=== PATIENT | male | born 1985 | race Two or more races ===

== ENCOUNTER 2019-03-04 22:15 | Emergency (ER) | payer SELFPAY ==
[~2019-03-04] VITALS: Ht 185.4 cm; Wt 136.7 kg
[~2019-03-04 22:15] MED LIST: ALBU6.7H3 IH; ALBU8.5H8 IH; AZIT250T PO; METF500T PO; NO HOME MEDS; ONDA4TAB6 PO; PROC-8 PO
[2019-03-05 00:57] VITALS: BP 149/68
== END 2019-03-05 01:03 | disposition home or self-care (01) ==
LOC: ER 22:16
DX: I83.91 Asymptomatic varicose veins of right lower extremity (principal); G89.29 Other chronic pain; Z90.49 Acquired absence of other specified parts of digestive tract; Z79.899 Other long term (current) drug therapy
CPT/HCPCS: 93971; 99284

== ENCOUNTER 2019-05-12 19:12 | Emergency (ER) | payer OTHER ==
[~2019-05-12] VITALS: Ht 185.4 cm; Wt 145.4 kg
[2019-05-12] MEDS ORDERED: morphine 4 MG/ML inj SYRINge IV PRN (19:30)
[2019-05-12] MEDS ORDERED: normal saline 1000ML IV soln IVB ONE (19:30)
[2019-05-12] MEDS ORDERED: ondansetron/PF 4mg/2ml inj IV ONE (19:30)
[2019-05-12 20:03] LABS: CLARITY,URINE CLEAR (Clear); COLOR,URINE AMBER (Yellow); GLUCOSE, URINE >=1000 mg/dl (Neg); KETONES,URINE TRACE mg/dl (Neg); LEUKOCYTE ESTERASE ,URINE NEGATIVE (Neg); NITRITES, URINE NEGATIVE (Neg); OCCULT BLOOD,URINE NEGATIVE (Neg); PH,URINE 5.5 (4.8-8.0); PROTEIN,URINE TRACE mg/dl (Neg); UROBILINOGEN,URINE 0.2 E.U/dL (0.2-1.0)
[2019-05-12 20:04] LABS: UA COLLECTION TYPE CLN CATCH MIDSTREAM
--- NOTE | 2019-05-12 20:04 | NUR ---
Urine sample sent to lab for UA. Pt transported to CT via wheelchair.
[2019-05-12 20:05] LABS: BASOPHILS # (AUTO) 0.1 X10'3 (0-0.2); BASOPHILS % (AUTO) 0.7 % (0-1); EOSINOPHILS # (AUTO) 0.2 X10'3 (0-0.9); EOSINOPHILS % (AUTO) 1.9 % (0-6); HEMATOCRIT 46.6 % (42.0-52.0); HEMOGLOBIN 15.6 g/dl (14.0-17.9); LYMPHOCYTES % (AUTO) 21.2 % (21-51); MEAN CORPUSCULAR HEMOGLOBIN 27.3 PG (27.0-31.0); MEAN CORPUSCULAR HGB CONC 33.5 g/dL (33.0-36.5); MEAN CORPUSCULAR VOLUME 81.4 FL (78-98); MEAN PLATELET VOLUME 7.1 FL (7.4-10.4); MONOCYTES # (AUTO) 0.9 X10'3 (0-0.9); MONOCYTES % (AUTO) 9.9 % (2-12); NEUTROPHILS # (AUTO) 6.2 X10'3 (1.8-7.7); NEUTROPHILS % (AUTO) 66.3 % (42-75); PLATELET COUNT 330 X10'3 (140-440); RED BLOOD COUNT 5.73 X10'6 (4.70-6.10); RED CELL DISTRIBUTION WIDTH 14.2 % (11.5-14.5); WHITE BLOOD COUNT 9.4 X10'3 (4.5-11.0)
[2019-05-12 20:13] LABS: BACTERIA,URINE NONE SEEN /HPF (Neg); MUCUS STRANDS FEW /LPF (Neg); RBC,URINE 0-2 /HPF (0-2); SQUAMOUS EPITHELIAL CELL,UR NONE SEEN /LPF (FEW); WBC,URINE 0-4 /HPF (0-4)
[2019-05-12 20:18] LABS: ALANINE AMINOTRANSFERASE 85 U/L (12-78); ALBUMIN 3.5 G/DL (3.4-5.0); ALBUMIN/GLOBULIN RATIO 0.8 (1.1-1.5); ALKALINE PHOSPHATASE 87 IU/L (46-116); ANION GAP 7 (8-16); ASPARTATE AMINO TRANSFERASE 34 U/L (10-37); BILIRUBIN,TOTAL 0.3 MG/DL (0.1-1.0); BLOOD UREA NITROGEN 13 MG/DL (7-18); BUN/CREATININE RATIO 8.3 (5.4-32.0); CALCIUM 9.2 MG/DL (8.5-10.1); CHLORIDE 103 MMOL/L (99-107); CREATININE 1.56 MG/DL (0.60-1.10); GLUCOSE 231 MG/DL (70-104); LIPASE 96 U/L (73-393); POTASSIUM 3.8 MMOL/L (3.5-5.1); SODIUM 139 MMOL/L (135-145); TOTAL PROTEIN 7.9 G/DL (6.4-8.2); eGFR 52 ML/MIN
[2019-05-12 21:00] VITALS: BP 133/82
== END 2019-05-12 21:21 | disposition home or self-care (01) ==
LOC: ER 19:13
DX: R10.13 Epigastric pain (principal); R19.7 Diarrhea, unspecified; G89.29 Other chronic pain; Z90.49 Acquired absence of other specified parts of digestive tract; Z79.2 Long term (current) use of antibiotics; Z79.84 Long term (current) use of oral hypoglycemic drugs; Z79.899 Other long term (current) drug therapy
CPT/HCPCS: 36415; 74176; 80053; 81001; 83690; 85025; 99284

== ENCOUNTER 2019-06-21 10:07 | Emergency (ER) | payer OTHER ==
[~2019-06-21] VITALS: Ht 185.4 cm; Wt 147.7 kg
[2019-06-21 10:13] VITALS: BP 141/108
== END 2019-06-21 11:15 | disposition home or self-care (01) ==
LOC: ER 10:09
DX: G56.02 Carpal tunnel syndrome, left upper limb (principal); G89.29 Other chronic pain; Z90.49 Acquired absence of other specified parts of digestive tract; Z79.84 Long term (current) use of oral hypoglycemic drugs; Z79.899 Other long term (current) drug therapy
CPT/HCPCS: 29260; 99283

== ENCOUNTER 2020-06-01 17:28 | Emergency (ER) | payer OTHER ==
[~2020-06-01] VITALS: Ht 185.4 cm; Wt 145.4 kg
[2020-06-01 17:43] VITALS: BP 135/101
== END 2020-06-01 18:11 | disposition home or self-care (01) ==
LOC: ER 17:28
DX: J06.9 Acute upper respiratory infection, unspecified (principal); R05 Cough; Z20.828 Contact with and (suspected) exposure to other viral communicable diseases; G89.29 Other chronic pain; Z90.49 Acquired absence of other specified parts of digestive tract; Z87.01 Personal history of pneumonia (recurrent); Z79.2 Long term (current) use of antibiotics; Z79.899 Other long term (current) drug therapy
CPT/HCPCS: 36415; 87635; 99283

== ENCOUNTER 2020-06-07 11:30 | Emergency (ER) | payer OTHER ==
[~2020-06-07] VITALS: Ht 185.4 cm; Wt 145.4 kg
[2020-06-07] MEDS ORDERED: normal saline 1000ML IV soln IV ONE (12:00)
[2020-06-07] MEDS ORDERED: aspirin 81mg tab.chew PO ONE (12:00)
[2020-06-07] MEDS ORDERED: ALBUTEROL INHALER 1 PUFF/90 MCG INHALER IH PRN (12:15)
[2020-06-07 12:47] LABS: BASOPHILS % (AUTO) 0.8 % (0-1); EOSINOPHILS % (AUTO) 0.3 % (0-6); HEMATOCRIT 50.5 % (42.0-52.0); HEMOGLOBIN 16.9 g/dl (14.0-17.9); LYMPHOCYTES # (AUTO) 1.2 X10'3 (1.1-4.8); LYMPHOCYTES % (AUTO) 27.8 % (21-51); MEAN CORPUSCULAR HEMOGLOBIN 26.9 PG (27.0-31.0); MEAN CORPUSCULAR HGB CONC 33.5 g/dL (33.0-36.5); MEAN CORPUSCULAR VOLUME 80.3 FL (78-98); MEAN PLATELET VOLUME 7.6 FL (7.4-10.4); MONOCYTES # (AUTO) 0.4 X10'3 (0-0.9); MONOCYTES % (AUTO) 10.6 % (2-12); NEUTROPHILS # (AUTO) 2.5 X10'3 (1.8-7.7); NEUTROPHILS % (AUTO) 60.5 % (42-75); PLATELET COUNT 208 X10'3 (140-440); RED BLOOD COUNT 6.28 X10'6 (4.70-6.10); WHITE BLOOD COUNT 4.1 X10'3 (4.5-11.0)
[2020-06-07 12:52] LABS: D-DIMER 0.26 MG/L FEU (0-0.50)
[2020-06-07 12:55] LABS: ALANINE AMINOTRANSFERASE 131 U/L (12-78); ALBUMIN 3.7 G/DL (3.4-5.0); ALBUMIN/GLOBULIN RATIO 0.8 (1.1-1.5); ALKALINE PHOSPHATASE 88 IU/L (46-116); ANION GAP 9 (8-16); ASPARTATE AMINO TRANSFERASE 66 U/L (10-37); BILIRUBIN,TOTAL 0.5 MG/DL (0.1-1.0); BLOOD UREA NITROGEN 16 MG/DL (7-18); BUN/CREATININE RATIO 14.2 (5.4-32.0); CALCIUM 8.7 MG/DL (8.5-10.1); CHLORIDE 102 MMOL/L (99-107); CREATININE 1.13 MG/DL (0.60-1.10); GLUCOSE 211 MG/DL (70-104); SODIUM 137 MMOL/L (135-145); TOTAL CARBON DIOXIDE 25.6 MMOL/L (24-32); TOTAL PROTEIN 8.1 G/DL (6.4-8.2); eGFR 75 ML/MIN
[2020-06-07] MEDS ORDERED: dexamethasone sod phosphate 10mg/ml inj IV STA (13:02)
[2020-06-07] MEDS ORDERED: azithromycin/NS 500mg/250ml 250 ML IV ONE (13:05)
[2020-06-07] MEDS ORDERED: CefTRIAXone 2gm/D5W 50ml BAG 50 ML IV ONE (13:05)
[2020-06-07 13:08] LABS: C-REACTIVE PROTEIN 1.91 MG/DL (0.0-0.5); FERRITIN 655 NG/ML (26-388); LACTATE DEHYDROGENASE 201 U/L (85-227)
--- NOTE | 2020-06-07 13:34 | NUR ---
AMBULATED IN ROOM 02 96%, HR 136, RR 36 FEELS SOB
[2020-06-07 14:12] LABS: CLARITY,URINE CLEAR (Clear); COLOR,URINE YELLOW (Yellow); GLUCOSE, URINE >=1000 mg/dl (Neg); KETONES,URINE 40 mg/dl (Neg); LEUKOCYTE ESTERASE ,URINE NEGATIVE (Neg); NITRITES, URINE NEGATIVE (Neg); OCCULT BLOOD,URINE NEGATIVE (Neg); PH,URINE 5.5 (4.8-8.0); PROTEIN,URINE TRACE mg/dl (Neg); UROBILINOGEN,URINE 0.2 E.U/dL (0.2-1.0)
[2020-06-07 14:15] LABS: UA COLLECTION TYPE URINAL
[2020-06-07 14:21] LABS: BACTERIA,URINE FEW /HPF (Neg); HYALINE CASTS 0-3 /LPF (NEGATIVE); MUCUS STRANDS MODERATE /LPF (Neg); RBC,URINE 0-2 /HPF (0-2); SQUAMOUS EPITHELIAL CELL,UR FEW /LPF (FEW); WBC,URINE 0-4 /HPF (0-4)
[2020-06-07] MEDS ORDERED: AZIT500T PO (15:08)
[2020-06-07] MEDS ORDERED: ALBU6.7H9 INH (15:08)
[2020-06-07] MEDS ORDERED: DEXA6TAB PO (15:08)
[2020-06-07 16:10] VITALS: BP 120/82
== END 2020-06-07 16:00 | disposition home or self-care (01) ==
LOC: ER 11:30
DX: U07.1 COVID-19 (principal); R06.02 Shortness of breath; R05 Cough; R53.83 Other fatigue; R53.1 Weakness; R50.9 Fever, unspecified; G89.29 Other chronic pain; Z87.01 Personal history of pneumonia (recurrent); Z90.49 Acquired absence of other specified parts of digestive tract; Z79.2 Long term (current) use of antibiotics; Z79.899 Other long term (current) drug therapy
CPT/HCPCS: 36415; 71045; 80053; 81001; 82728; 83605; 83615; 83880; 84145; 84484; 85025; 85379; 86140; 87040; 96361; 96365; 96366; 96367; 96375; 99285; J0456; J0696; J1100; J7030

== ENCOUNTER 2020-06-09 11:29 | Inpatient (IN) | payer OTHER ==
[~2020-06-09] VITALS: Ht 185.4 cm; Wt 145.4 kg
[~2020-06-09 11:29] MED LIST changes: -ALBU6.7H3 IH; +ALBU6.7H9 INH; -ALBU8.5H8 IH; -AZIT250T PO; +AZIT500T PO; +DEXA6TAB PO; -METF500T PO; -ONDA4TAB6 PO; -PROC-8 PO
[2020-06-09] MEDS ORDERED: normal saline 1000ML IV soln IVB ONE (12:30)
[2020-06-09] MEDS ORDERED: ketorolac trometh. 30mg/ml inj. IM ONE (12:30)
[2020-06-09] MEDS ORDERED: ondansetron/PF 4mg/2ml inj IV ONE (12:30)
[2020-06-09] MEDS ORDERED: iohexol 350MG/ML 100ml bottle IV ONE (13:28)
[2020-06-09 13:34] LABS: BASOPHILS % (AUTO) 0.4 % (0-1); EOSINOPHILS % (AUTO) 0 % (0-6); HEMATOCRIT 47.3 % (42.0-52.0); HEMOGLOBIN 15.9 g/dl (14.0-17.9); LYMPHOCYTES # (AUTO) 0.8 X10'3 (1.1-4.8); LYMPHOCYTES % (AUTO) 8.8 % (21-51); MEAN CORPUSCULAR HEMOGLOBIN 26.9 PG (27.0-31.0); MEAN CORPUSCULAR HGB CONC 33.7 g/dL (33.0-36.5); MEAN CORPUSCULAR VOLUME 79.9 FL (78-98); MEAN PLATELET VOLUME 7.6 FL (7.4-10.4); MONOCYTES # (AUTO) 0.7 X10'3 (0-0.9); MONOCYTES % (AUTO) 7.4 % (2-12); NEUTROPHILS # (AUTO) 7.9 X10'3 (1.8-7.7); NEUTROPHILS % (AUTO) 83.4 % (42-75); PLATELET COUNT 241 X10'3 (140-440); RED BLOOD COUNT 5.92 X10'6 (4.70-6.10); WHITE BLOOD COUNT 9.4 X10'3 (4.5-11.0)
[2020-06-09 13:49] LABS: C-REACTIVE PROTEIN 3.46 MG/DL (0.0-0.5)
--- NOTE | 2020-06-09 15:23 | NUR ---
gait tested patient inside the room,reports sob,sating 87% without oxygen.placed on 2L sating 95%.
[2020-06-09] MEDS ORDERED: DEXAMETHASONE 6 MG TABLET PO STA (15:42)
[2020-06-09 16:15] LABS: ALANINE AMINOTRANSFERASE 81 U/L (12-78); ALBUMIN 3.5 G/DL (3.4-5.0); ALBUMIN/GLOBULIN RATIO 0.8 (1.1-1.5); ALKALINE PHOSPHATASE 87 IU/L (46-116); ANION GAP 13 (8-16); ASPARTATE AMINO TRANSFERASE 33 U/L (10-37); BILIRUBIN,TOTAL 0.5 MG/DL (0.1-1.0); BLOOD UREA NITROGEN 14 MG/DL (7-18); CALCIUM 8.8 MG/DL (8.5-10.1); CHLORIDE 101 MMOL/L (99-107); CREATININE 1.08 MG/DL (0.60-1.10); GLUCOSE 289 MG/DL (70-104); POTASSIUM 3.8 MMOL/L (3.5-5.1); SODIUM 136 MMOL/L (135-145); TOTAL CARBON DIOXIDE 21.8 MMOL/L (24-32); TOTAL PROTEIN 7.8 G/DL (6.4-8.2); eGFR 79 ML/MIN
[2020-06-09 16:27] LABS: D-DIMER 0.29 MG/L FEU (0-0.50)
[2020-06-09 16:31] LABS: URINE AMPHETAMINE SCREEN NEGATIVE (Neg); URINE BARBITUATE SCREEN NEGATIVE (Neg); URINE BENZODIAZEPINES SCREEN NEGATIVE (Neg); URINE CANNABINOID SCREEN NEGATIVE (Neg); URINE COCAINE SCREEN NEGATIVE (Neg); URINE METHADONE SCREEN NEGATIVE (Neg); URINE OPIATE SCREEN NEGATIVE (Neg); URINE PHENCYCLIDINE SCREEN NEGATIVE (Neg)
[2020-06-09] MEDS ORDERED: acetaminophen 325mg tablet PO PRN (16:35)
[2020-06-09] MEDS ORDERED: magnesium hydroxide 30ml (MOM) UD suspension PO PRN (16:35)
[2020-06-09] MEDS ORDERED: mag hydrox/Alum hydrox/simeth 30ml oral suspension PO PRN (16:35)
[2020-06-09] MEDS ORDERED: ondansetron/PF 4mg/2ml inj IV PRN (16:35)
[2020-06-09] MEDS ORDERED: DEXA6TAB PO (16:59)
[2020-06-09] MEDS ORDERED: AZIT500T9 PO (16:59)
[2020-06-09] MEDS ORDERED: ALBU8HFA IH (16:59)
[2020-06-09 19:28] VITALS: BP 136/107
[2020-06-09 19:54] LABS: LACTATE DEHYDROGENASE 278 U/L (85-227)
[2020-06-09] MEDS: enoxaparin 30mg/0.3ml syringe SQ SCH (21:06)
[2020-06-09 22:00] VITALS: BP 136/87
[2020-06-10] MEDS: ALBUTEROL INHALER 1 PUFF/90 MCG INHALER IH PRN ×3 (04:03→19:44)
[2020-06-10 06:00] VITALS: BP 161/103
--- NOTE | 2020-06-10 06:05 | NUR ---
Problems reprioritized. Patient report given, questions answered & plan of care reviewed with SYLVIA Merchant.
[2020-06-10 06:52] LABS: BASOPHILS % (AUTO) 0.1 % (0-1); EOSINOPHILS % (AUTO) 0 % (0-6); HEMATOCRIT 46.1 % (42.0-52.0); HEMOGLOBIN 15.5 g/dl (14.0-17.9); LYMPHOCYTES # (AUTO) 0.9 X10'3 (1.1-4.8); LYMPHOCYTES % (AUTO) 7.6 % (21-51); MEAN CORPUSCULAR HEMOGLOBIN 27.5 PG (27.0-31.0); MEAN CORPUSCULAR HGB CONC 33.7 g/dL (33.0-36.5); MEAN CORPUSCULAR VOLUME 81.6 FL (78-98); MEAN PLATELET VOLUME 7.3 FL (7.4-10.4); MONOCYTES # (AUTO) 0.8 X10'3 (0-0.9); MONOCYTES % (AUTO) 6.7 % (2-12); NEUTROPHILS # (AUTO) 9.6 X10'3 (1.8-7.7); NEUTROPHILS % (AUTO) 85.6 % (42-75); PLATELET COUNT 247 X10'3 (140-440); RED BLOOD COUNT 5.65 X10'6 (4.70-6.10); WHITE BLOOD COUNT 11.2 X10'3 (4.5-11.0)
[2020-06-10 06:58] LABS: ALBUMIN 3.3 G/DL (3.4-5.0); ANION GAP 10 (8-16); BLOOD UREA NITROGEN 15 MG/DL (7-18); BUN/CREATININE RATIO 15.6 (5.4-32.0); CALCIUM 9.4 MG/DL (8.5-10.1); CHLORIDE 102 MMOL/L (99-107); CREATININE 0.96 MG/DL (0.60-1.10); GLUCOSE 251 MG/DL (70-104); POTASSIUM 3.8 MMOL/L (3.5-5.1); SODIUM 138 MMOL/L (135-145); TOTAL CARBON DIOXIDE 25.8 MMOL/L (24-32); eGFR > 90 ML/MIN
[2020-06-10] MEDS: HYDROcodone/acetaminophen 5mg/325mg tablet PO PRN ×3 (07:38→21:48)
[2020-06-10] MEDS: enoxaparin 30mg/0.3ml syringe SQ SCH ×2 (07:38→18:47)
[2020-06-10] MEDS: DEXAMETHASONE 6 MG TABLET PO SCH (07:38)
[2020-06-10 10:00] VITALS: BP 148/99
[2020-06-10] MEDS ORDERED: dextrose 50%-water 50ml dispensing syringe IV PRN ×2 (12:15)
[2020-06-10] MEDS ORDERED: dextrose ORAL solution 15 GM/59 ML bottle PO PRN ×2 (12:15)
[2020-06-10] MEDS ORDERED: glucagon, human recombinant 1mg kit SUBCUT PRN (12:15)
[2020-06-10 12:37] LABS: HEMOGLOBIN A1C 9.2 % (4.5-6.2)
[2020-06-10] MEDS: guaiFENesin ER 600mg tablet PO SCH ×2 (12:47→18:46)
[2020-06-10] MEDS: insulin Lispro (HumaLOG) vial - multi-dose SQ SCH ×2 (13:55→19:05)
[2020-06-10] MEDS ORDERED: hydrALAZINE 20mg/ml inj. IV PRN (17:05)
[2020-06-10 18:00] VITALS: BP 153/93
--- NOTE | 2020-06-10 18:17 | NUR ---
Problems reprioritized. Patient report given, questions answered & plan of care reviewed with Divya WARD.
[2020-06-10] MEDS: insulin glargine (Lantus) pen - multi-dose SQ SCH (21:55)
[2020-06-10 22:00] VITALS: BP 141/102
[2020-06-11] MEDS: ALBUTEROL INHALER 1 PUFF/90 MCG INHALER IH PRN (01:44)
[2020-06-11] MEDS: HYDROcodone/acetaminophen 5mg/325mg tablet PO PRN ×2 (02:09→08:06)
[2020-06-11 05:52] VITALS: BP 130/88
[2020-06-11 06:00] VITALS: BP 130/88
--- NOTE | 2020-06-11 06:26 | NUR ---
Problems reprioritized. Patient report given, questions answered & plan of care reviewed with SYLVIA Merchant.
[2020-06-11 06:34] LABS: BASOPHILS % (AUTO) 0.2 % (0-1); EOSINOPHILS % (AUTO) 0.1 % (0-6); HEMATOCRIT 42.7 % (42.0-52.0); HEMOGLOBIN 14.5 g/dl (14.0-17.9); LYMPHOCYTES # (AUTO) 1.6 X10'3 (1.1-4.8); LYMPHOCYTES % (AUTO) 14.1 % (21-51); MEAN CORPUSCULAR HEMOGLOBIN 27.3 PG (27.0-31.0); MEAN CORPUSCULAR HGB CONC 33.9 g/dL (33.0-36.5); MEAN CORPUSCULAR VOLUME 80.5 FL (78-98); MEAN PLATELET VOLUME 7.3 FL (7.4-10.4); MONOCYTES # (AUTO) 0.8 X10'3 (0-0.9); MONOCYTES % (AUTO) 7.3 % (2-12); NEUTROPHILS # (AUTO) 8.8 X10'3 (1.8-7.7); NEUTROPHILS % (AUTO) 78.3 % (42-75); PLATELET COUNT 251 X10'3 (140-440); WHITE BLOOD COUNT 11.2 X10'3 (4.5-11.0)
[2020-06-11 06:35] LABS: D-DIMER 0.27 MG/L FEU (0-0.50)
[2020-06-11 06:58] LABS: ANION GAP 10 (8-16); BLOOD UREA NITROGEN 18 MG/DL (7-18); BUN/CREATININE RATIO 16.8 (5.4-32.0); C-REACTIVE PROTEIN 8.43 MG/DL (0.0-0.5); CALCIUM 8.6 MG/DL (8.5-10.1); CHLORIDE 101 MMOL/L (99-107); CREATININE 1.07 MG/DL (0.60-1.10); GLUCOSE 158 MG/DL (70-104); POTASSIUM 3.8 MMOL/L (3.5-5.1); SODIUM 138 MMOL/L (135-145); TOTAL CARBON DIOXIDE 26.7 MMOL/L (24-32); eGFR 80 ML/MIN
[2020-06-11] MEDS: DEXAMETHASONE 6 MG TABLET PO SCH ×2 (08:06→19:29)
[2020-06-11] MEDS: enoxaparin 30mg/0.3ml syringe SQ SCH ×2 (08:06→19:29)
[2020-06-11] MEDS: guaiFENesin ER 600mg tablet PO SCH ×2 (08:06→19:28)
[2020-06-11] MEDS: insulin Lispro (HumaLOG) vial - multi-dose SQ SCH ×3 (08:57→19:21)
[2020-06-11 09:04] VITALS: BP 129/88
--- NOTE | 2020-06-11 14:44 | NUR ---
DM Consult: A1C 9.2. Pt admit DX COVID-19 PNA and new DM DX; has been notified by hospitalist regarding new DX. Advanced to carb controlled diet PO 75-100% avg meals meeting needs. Pt provided written DM ed, new DM DX booklet, and RD contact information from RD via RN while in isolation. RD contacted pt via telephone and provided thorough DM diet ed reviewing types of carbs, protein, hydration, exercise, carb portion sizing, snack options, hypo/hyperglycemia symptoms, nutrition-facts label reading, and avoidance of current fad diets such as keto. Pt questions answered by RD and reports no other questions at this time; RD provided dietitian's office extensions and encouraged pt to contact both this admit and following discharge if further questions/concerns. LBM 06/10. Pt requests whole wheat roll BIDLD; double proteins TIDWM added as well given additional protein needs w/ DX and current wt; dietary notified. Will continue to monitor for additional protein needs this admit. Rec: 1. continue carb controlled diet; double proteins TIDWM 2. honor pt food preferences within DM guidelines 3. routine bowel care 4. wt per rx 5. monitor for further DM questions/concerns prior to discharge given new DX Addendum: 06/11/20 at [address] Amended: Links added.
[2020-06-11 18:00] VITALS: BP 119/80
--- NOTE | 2020-06-11 18:37 | NUR ---
Problems reprioritized. Patient report given, questions answered & plan of care reviewed with Yvette WARD.
[2020-06-11 22:06] VITALS: BP 128/89
[2020-06-11] MEDS: insulin glargine (Lantus) pen - multi-dose SQ SCH (22:13)
[2020-06-12 05:12] VITALS: BP 148/107
[2020-06-12 06:54] LABS: BASOPHILS % (AUTO) 0.2 % (0-1); EOSINOPHILS % (AUTO) 0 % (0-6); HEMATOCRIT 48.5 % (42.0-52.0); HEMOGLOBIN 16.2 g/dl (14.0-17.9); LYMPHOCYTES # (AUTO) 0.8 X10'3 (1.1-4.8); LYMPHOCYTES % (AUTO) 10.3 % (21-51); MEAN CORPUSCULAR HGB CONC 33.5 g/dL (33.0-36.5); MEAN CORPUSCULAR VOLUME 80.7 FL (78-98); MEAN PLATELET VOLUME 7.3 FL (7.4-10.4); MONOCYTES # (AUTO) 0.5 X10'3 (0-0.9); MONOCYTES % (AUTO) 6.4 % (2-12); NEUTROPHILS # (AUTO) 6.5 X10'3 (1.8-7.7); NEUTROPHILS % (AUTO) 83.1 % (42-75); PLATELET COUNT 341 X10'3 (140-440); RED BLOOD COUNT 6.01 X10'6 (4.70-6.10); RED CELL DISTRIBUTION WIDTH 13.9 % (11.5-14.5); WHITE BLOOD COUNT 7.8 X10'3 (4.5-11.0)
[2020-06-12 07:08] LABS: ALBUMIN 3.3 G/DL (3.4-5.0); ANION GAP 10 (8-16); BLOOD UREA NITROGEN 18 MG/DL (7-18); BUN/CREATININE RATIO 19.1 (5.4-32.0); C-REACTIVE PROTEIN 8.16 MG/DL (0.0-0.5); CALCIUM 9.7 MG/DL (8.5-10.1); CHLORIDE 100 MMOL/L (99-107); CREATININE 0.94 MG/DL (0.60-1.10); GLUCOSE 218 MG/DL (70-104); POTASSIUM 4.1 MMOL/L (3.5-5.1); SODIUM 138 MMOL/L (135-145); TOTAL CARBON DIOXIDE 28.3 MMOL/L (24-32); eGFR > 90 ML/MIN
[2020-06-12 08:00] VITALS: BP 148/99
[2020-06-12] MEDS: DEXAMETHASONE 6 MG TABLET PO SCH ×2 (08:00→21:27)
[2020-06-12] MEDS: guaiFENesin ER 600mg tablet PO SCH ×2 (08:00→21:27)
[2020-06-12] MEDS: enoxaparin 30mg/0.3ml syringe SQ SCH ×2 (08:00→21:28)
[2020-06-12 08:24] LABS: D-DIMER 0.23 MG/L FEU (0-0.50)
[2020-06-12] MEDS: insulin Lispro (HumaLOG) vial - multi-dose SQ SCH ×3 (09:00→21:42)
[2020-06-12 12:50] VITALS: BP 144/95
[2020-06-12 15:44] VITALS: BP 135/87
--- NOTE | 2020-06-12 18:15 | NUR ---
RECEIVED REPORT FROM JAMIE WARD AND ASSUMED PATIENT CARE
--- NOTE | 2020-06-12 18:24 | NUR ---
Report to Kayleigh WARD
[2020-06-12 20:00] VITALS: BP 136/78
[2020-06-12] MEDS: insulin glargine (Lantus) pen - multi-dose SQ SCH (21:41)
[2020-06-13 05:00] VITALS: BP 126/72
--- NOTE | 2020-06-13 06:00 | NUR ---
Patient in room [facility] 4023. I have received report from Kayleigh and had the opportunity to ask questions and assume patient care.
[2020-06-13 06:46] LABS: BASOPHILS % (AUTO) 0.2 % (0-1); EOSINOPHILS % (AUTO) 0.2 % (0-6); HEMATOCRIT 47.1 % (42.0-52.0); HEMOGLOBIN 15.8 g/dl (14.0-17.9); LYMPHOCYTES % (AUTO) 13.3 % (21-51); MEAN CORPUSCULAR HEMOGLOBIN 27.4 PG (27.0-31.0); MEAN CORPUSCULAR HGB CONC 33.5 g/dL (33.0-36.5); MEAN CORPUSCULAR VOLUME 81.6 FL (78-98); MEAN PLATELET VOLUME 7.4 FL (7.4-10.4); MONOCYTES # (AUTO) 0.7 X10'3 (0-0.9); MONOCYTES % (AUTO) 8.4 % (2-12); NEUTROPHILS # (AUTO) 6.1 X10'3 (1.8-7.7); NEUTROPHILS % (AUTO) 77.9 % (42-75); PLATELET COUNT 399 X10'3 (140-440); RED BLOOD COUNT 5.78 X10'6 (4.70-6.10); RED CELL DISTRIBUTION WIDTH 13.7 % (11.5-14.5); WHITE BLOOD COUNT 7.9 X10'3 (4.5-11.0)
[2020-06-13 06:53] LABS: D-DIMER 0.32 MG/L FEU (0-0.50)
[2020-06-13 07:03] LABS: ALBUMIN 3.1 G/DL (3.4-5.0); ANION GAP 8 (8-16); BLOOD UREA NITROGEN 25 MG/DL (7-18); BUN/CREATININE RATIO 26.6 (5.4-32.0); C-REACTIVE PROTEIN 3.09 MG/DL (0.0-0.5); CALCIUM 9.4 MG/DL (8.5-10.1); CHLORIDE 103 MMOL/L (99-107); CREATININE 0.94 MG/DL (0.60-1.10); GLUCOSE 238 MG/DL (70-104); POTASSIUM 4.3 MMOL/L (3.5-5.1); SODIUM 139 MMOL/L (135-145); TOTAL CARBON DIOXIDE 28.3 MMOL/L (24-32); eGFR > 90 ML/MIN
[2020-06-13] MEDS: guaiFENesin ER 600mg tablet PO SCH (07:51)
[2020-06-13] MEDS: enoxaparin 30mg/0.3ml syringe SQ SCH (07:52)
[2020-06-13] MEDS: DEXAMETHASONE 6 MG TABLET PO SCH (07:52)
[2020-06-13] MEDS: HYDROcodone/acetaminophen 5mg/325mg tablet PO PRN (08:13)
[2020-06-13] MEDS: insulin Lispro (HumaLOG) vial - multi-dose SQ SCH (09:44)
[2020-06-13] MEDS ORDERED: GUAI600T45 PO (09:58)
[2020-06-13] MEDS ORDERED: DEC4T PO (09:58)
[2020-06-13] MEDS ORDERED: LANTUS SQ (09:58)
--- NOTE | 2020-06-13 12:00 | NUR ---
Discharge instructions went over gave Pt list of providers and spoke to about making a appt to follow up within 1 week of discharge. Gave instructions to patient regarding lantus and prescription for lancers and syringes. Patient said he understood importance and would call to make appt.
== END 2020-06-13 12:10 | disposition home or self-care (01) | DRG 177 ==
LOC: ER 11:30 → ED HOLD 16:33 → EDBEDREQ 18:28 → ORTHO 4S 19:05
PROVIDERS: ADMIT Family Medicine; ATTEND Family Medicine
PROC: B32T1ZZ Computerized Tomography (CT Scan) of Left Pulmonary Artery using Low Osmolar Contrast (ICD-10-PCS; principal; 2020-06-09)
PROC: B3201ZZ Computerized Tomography (CT Scan) of Thoracic Aorta using Low Osmolar Contrast (ICD-10-PCS; 2020-06-09)
PROC: B32S1ZZ Computerized Tomography (CT Scan) of Right Pulmonary Artery using Low Osmolar Contrast (ICD-10-PCS; 2020-06-09)
DX: U07.1 COVID-19 (principal); J12.89 Other viral pneumonia; J96.01 Acute respiratory failure with hypoxia; Z68.41 Body mass index [BMI] 40.0-44.9, adult; R04.2 Hemoptysis; E11.9 Type 2 diabetes mellitus without complications; E66.01 Morbid (severe) obesity due to excess calories; G89.29 Other chronic pain; M54.9 Dorsalgia, unspecified; Z79.4 Long term (current) use of insulin; Z90.49 Acquired absence of other specified parts of digestive tract
CPT/HCPCS: 36415; 71275; 80048; 80053; 80305; 82948; 83036; 83615; 84145; 84484; 85025; 85379; 86140; 87070; 87081; 93005; 94668; 94760; 96372; 96374; 99285; G0378; J1650; J1815; J1885; J2405; J7030; J8540; Q9967

== ENCOUNTER 2021-06-11 01:51 | Emergency (ER) | payer OTHER ==
[~2021-06-11] VITALS: Ht 185.4 cm; Wt 138.6 kg
[~2021-06-11 01:51] MED LIST changes: -ALBU6.7H9 INH; +ALBU8HFA IH; -AZIT500T PO; +AZIT500T9 PO; -DEXA6TAB PO; +GUAI600T45 PO; -NO HOME MEDS
[2021-06-11 01:59] VITALS: BP 162/118
== END 2021-06-11 05:25 | disposition home or self-care (01) ==
LOC: ER 01:51
DX: R51.9 Headache, unspecified (principal); Z20.822 Contact with and (suspected) exposure to COVID-19; R68.83 Chills (without fever); G89.29 Other chronic pain; Z87.01 Personal history of pneumonia (recurrent); Z90.49 Acquired absence of other specified parts of digestive tract; Z87.19 Personal history of other diseases of the digestive system; Z79.2 Long term (current) use of antibiotics; Z79.899 Other long term (current) drug therapy
CPT/HCPCS: 87635; 99283; C9803

== ENCOUNTER 2023-06-29 21:30 | Emergency (ER) | payer SELFPAY ==
[~2023-06-29] VITALS: Ht 185.4 cm; Wt 138.6 kg
[2023-06-29] MEDS ORDERED: morphine 4 MG/ML inj SYRINge IV ONE (22:45)
[2023-06-29] MEDS ORDERED: ringers solution, lacted 1,000 ML IV ONE (22:45)
[2023-06-29 23:14] LABS: BILIRUBIN,URINE NEGATIVE (Neg); CLARITY,URINE CLEAR (Clear); COLOR,URINE YELLOW (Yellow); GLUCOSE, URINE >=1000 mg/dl (Neg); KETONES,URINE NEGATIVE (Neg); LEUKOCYTE ESTERASE ,URINE NEGATIVE (Neg); NITRITES, URINE NEGATIVE (Neg); OCCULT BLOOD,URINE NEGATIVE (Neg); PH,URINE 5.5 (4.8-8.0); PROTEIN,URINE NEGATIVE (Neg); UROBILINOGEN,URINE 0.2 E.U/dL (0.2-1.0)
[2023-06-29 23:19] LABS: ALANINE AMINOTRANSFERASE 57 U/L (12-78); ALBUMIN 3.3 G/DL (3.4-5.0); ALBUMIN/GLOBULIN RATIO 0.8 (1.1-1.5); ALKALINE PHOSPHATASE 96 IU/L (46-116); ANION GAP 8 (8-16); ASPARTATE AMINO TRANSFERASE 18 U/L (10-37); BILIRUBIN,TOTAL 0.4 MG/DL (0.1-1.0); BLOOD UREA NITROGEN 13 MG/DL (7-18); BUN/CREATININE RATIO 12.1 (10.0-20.0); CALCIUM 9.4 MG/DL (8.5-10.1); CHLORIDE 101 MMOL/L (99-107); CREATININE 1.07 MG/DL (0.60-1.10); GLUCOSE 316 MG/DL (70-104); POTASSIUM 4.2 MMOL/L (3.5-5.1); SODIUM 136 MMOL/L (135-145); TOTAL CARBON DIOXIDE 26.7 MMOL/L (24-32); TOTAL PROTEIN 7.5 G/DL (6.4-8.2); eCRCL 109 ML/MIN; eGFR 79 ML/MIN
[2023-06-29 23:27] LABS: LIPASE 21 U/L (16-77)
[2023-06-29 23:29] LABS: PRO BRAIN NATRIURETIC PEPTIDE < 30 PG/ML (0-125)
[2023-06-29 23:30] LABS: BASOPHILS # (AUTO) 0.1 X10'3 (0-0.2); BASOPHILS % (AUTO) 0.6 % (0-1); EOSINOPHILS # (AUTO) 0.2 X10'3 (0-0.9); EOSINOPHILS % (AUTO) 2.5 % (0-6); HEMATOCRIT 47.9 % (42.0-52.0); HEMOGLOBIN 15.8 g/dl (14.0-17.9); LYMPHOCYTES # (AUTO) 1.7 X10'3 (1.1-4.8); LYMPHOCYTES % (AUTO) 19.2 % (21-51); MEAN CORPUSCULAR HEMOGLOBIN 27.3 PG (27.0-31.0); MEAN CORPUSCULAR VOLUME 82.8 FL (78-98); MEAN PLATELET VOLUME 7.6 FL (7.4-10.4); MONOCYTES # (AUTO) 1.1 X10'3 (0-0.9); MONOCYTES % (AUTO) 12.9 % (2-12); NEUTROPHILS # (AUTO) 5.6 X10'3 (1.8-7.7); NEUTROPHILS % (AUTO) 64.8 % (42-75); PLATELET COUNT 309 X10'3 (140-440); RED BLOOD COUNT 5.78 X10'6 (4.70-6.10); RED CELL DISTRIBUTION WIDTH 14.3 % (11.5-14.5); WHITE BLOOD COUNT 8.6 X10'3 (4.5-11.0)
[2023-06-29 23:32] LABS: UA COLLECTION TYPE VOIDED
[2023-06-29 23:33] LABS: SQUAMOUS EPITHELIAL CELL,UR FEW /LPF (FEW)
[2023-06-29 23:34] LABS: BACTERIA,URINE FEW /HPF (Neg); RBC,URINE NONE SEEN /HPF (0-2); WBC,URINE 0-4 /HPF (0-4)
[2023-06-30] MEDS ORDERED: iohexol 300mg/ml 100ml inj. ONE (00:47)
[2023-06-30] MEDS ORDERED: meperidine/PF 50mg/ml syringe IV ONE (01:35)
[2023-06-30] MEDS ORDERED: AMOX-580 PO (04:52)
[2023-06-30] MEDS ORDERED: piperacillin/tazo 3.375gm/50ml 50 ML IV ONE (04:55)
[2023-06-30] MEDS ORDERED: dexamethasone sod phosphate 10mg/ml inj IV STA (04:59)
[2023-06-30] MEDS ORDERED: albuterol 2.5 MG/3 ML nebule NEB ONE (05:00)
[2023-06-30 05:14] VITALS: PULSE 89; RESP 16; O2SAT 92
[2023-06-30 05:19] VITALS: PULSE 99; RESP 16; O2SAT 99
[2023-06-30 05:42] VITALS: BP 127/86; PULSE 90; RESP 17; TEMP 98.4; O2SAT 94
== END 2023-06-30 05:44 | disposition home or self-care (01) ==
LOC: ER 21:31
DX: K57.92 Diverticulitis of intestine, part unspecified, without perforation or abscess without bleeding (principal); Z20.822 Contact with and (suspected) exposure to COVID-19; R09.89 Other specified symptoms and signs involving the circulatory and respiratory systems; R05.8 Other specified cough; G89.29 Other chronic pain; E11.9 Type 2 diabetes mellitus without complications; Z90.49 Acquired absence of other specified parts of digestive tract; Z79.2 Long term (current) use of antibiotics; Z79.899 Other long term (current) drug therapy
CPT/HCPCS: 36415; 71046; 74177; 80053; 81001; 83605; 83690; 83880; 84484; 85025; 87040; 87502; 87503; 87811; 93005; 94640; 96361; 96365; 96375; 99285; J1100; J2175; J2270; J2543; J3490; J7120; Q9967; 94760

== ENCOUNTER 2024-03-15 18:50 | Emergency (ER) | payer BC ==
[~2024-03-15] VITALS: Ht 185.4 cm; Wt 137.3 kg
[2024-03-15 19:36] LABS: BASOPHILS # (AUTO) 0.1 X10'3 (0-0.2); BASOPHILS % (AUTO) 0.8 % (0-1); EOSINOPHILS # (AUTO) 0.2 X10'3 (0-0.9); EOSINOPHILS % (AUTO) 1.9 % (0-6); HEMATOCRIT 46.2 % (42.0-52.0); HEMOGLOBIN 15.5 g/dl (14.0-17.9); LYMPHOCYTES # (AUTO) 2.2 X10'3 (1.1-4.8); LYMPHOCYTES % (AUTO) 21.2 % (21-51); MEAN CORPUSCULAR HEMOGLOBIN 27.1 PG (27.0-31.0); MEAN CORPUSCULAR HGB CONC 33.6 g/dL (33.0-36.5); MEAN CORPUSCULAR VOLUME 80.7 FL (78-98); MEAN PLATELET VOLUME 7.3 FL (7.4-10.4); MONOCYTES # (AUTO) 0.7 X10'3 (0-0.9); MONOCYTES % (AUTO) 7.1 % (2-12); NEUTROPHILS # (AUTO) 7.3 X10'3 (1.8-7.7); PLATELET COUNT 316 X10'3 (140-440); RED BLOOD COUNT 5.72 X10'6 (4.70-6.10); RED CELL DISTRIBUTION WIDTH 13.9 % (11.5-14.5); WHITE BLOOD COUNT 10.6 X10'3 (4.5-11.0)
[2024-03-15 19:47] LABS: ALANINE AMINOTRANSFERASE 58 U/L (12-78); ALBUMIN 3.6 G/DL (3.4-5.0); ALBUMIN/GLOBULIN RATIO 0.9 (1.1-1.5); ALKALINE PHOSPHATASE 91 IU/L (46-116); ANION GAP 9 (8-16); ASPARTATE AMINO TRANSFERASE 21 U/L (10-37); BILIRUBIN,TOTAL 0.4 MG/DL (0.1-1.0); BLOOD UREA NITROGEN 12 MG/DL (7-18); BUN/CREATININE RATIO 12.8 (10.0-20.0); CALCIUM 9.1 MG/DL (8.5-10.1); CHLORIDE 101 MMOL/L (99-107); CREATININE 0.94 MG/DL (0.60-1.10); GLUCOSE 328 MG/DL (70-104); LIPASE 32 U/L (16-77); SODIUM 136 MMOL/L (135-145); TOTAL CARBON DIOXIDE 26.3 MMOL/L (24-32); TOTAL PROTEIN 7.7 G/DL (6.4-8.2); eCRCL 123 ML/MIN; eGFR > 90 ML/MIN
[2024-03-15 20:54] LABS: APTT 27 SECONDS (22-32); PROTHROMBIN TIME 10.5 SECONDS (9.0-12.0)
[2024-03-15] MEDS ORDERED: ONDA-243 PO (22:06)
[2024-03-15] MEDS ORDERED: HYDR-3973 PO (22:06)
[2024-03-15] MEDS ORDERED: AMOX-580 PO (22:06)
[2024-03-15 22:07] LABS: BILIRUBIN,URINE NEGATIVE (Neg); CLARITY,URINE CLEAR (Clear); COLOR,URINE YELLOW (Yellow); GLUCOSE, URINE >=1000 mg/dl (Neg); KETONES,URINE NEGATIVE (Neg); LEUKOCYTE ESTERASE ,URINE NEGATIVE (Neg); NITRITES, URINE NEGATIVE (Neg); OCCULT BLOOD,URINE NEGATIVE (Neg); PH,URINE 5.5 (4.8-8.0); PROTEIN,URINE NEGATIVE (Neg); UROBILINOGEN,URINE 0.2 E.U/dL (0.2-1.0)
[2024-03-15 22:08] LABS: UA COLLECTION TYPE CLN CATCH MIDSTREAM
[2024-03-15 22:13] LABS: BACTERIA,URINE FEW /HPF (Neg); MUCUS STRANDS FEW /LPF (Neg); RBC,URINE 0-2 /HPF (0-2); SQUAMOUS EPITHELIAL CELL,UR FEW /LPF (FEW); WBC,URINE 0-4 /HPF (0-4)
[2024-03-15] MEDS: HYDROcodone/acetaminophen 10/325mg tab PO ONE (22:50)
[2024-03-15] MEDS: ondansetron 4mg rapidly disintigrating tab PO ONE (22:50)
[2024-03-15] MEDS: ketorolac trometh 15mg/ml vial 15 MG/ML ML IM ONE (22:50)
[2024-03-15 22:53] VITALS: BP 156/114; PULSE 76; RESP 14; TEMP 98.3; O2SAT 99
== END 2024-03-15 23:05 | disposition home or self-care (01) ==
LOC: ER 18:50
DX: K57.92 Diverticulitis of intestine, part unspecified, without perforation or abscess without bleeding (principal); G89.29 Other chronic pain; M54.9 Dorsalgia, unspecified; Z90.49 Acquired absence of other specified parts of digestive tract; Z79.2 Long term (current) use of antibiotics; Z79.899 Other long term (current) drug therapy
CPT/HCPCS: 36415; 74176; 80053; 81001; 83690; 85025; 85610; 85730; 96372; 99285; J1885

== ENCOUNTER 2024-05-26 00:33 | Emergency (ER) | payer BC ==
[~2024-05-26] VITALS: Ht 185.4 cm; Wt 138.6 kg
[~2024-05-26 00:33] MED LIST changes: +ONDA-243 PO
[2024-05-26 00:35] VITALS: BP 138/101; PULSE 89; RESP 18; O2SAT 97
[2024-05-26 02:21] VITALS: TEMP 98.7
== END 2024-05-26 02:23 | disposition home or self-care (01) ==
LOC: ER 00:34
DX: M71.22 Synovial cyst of popliteal space [Baker], left knee (principal); M25.562 Pain in left knee; Z88.1 Allergy status to other antibiotic agents; Z90.49 Acquired absence of other specified parts of digestive tract
CPT/HCPCS: 99281

== ENCOUNTER 2024-12-29 14:26 | Emergency (ER) | payer BC ==
[~2024-12-29] VITALS: Ht 185.4 cm; Wt 135.9 kg
[2024-12-29 14:41] VITALS: BP 185/121; PULSE 99; RESP 18; TEMP 97.8; O2SAT 97
--- NOTE | 2024-12-29 16:15 | Physician Documentation ---
History of Present Illness ~ Chief Complaint: Leg Pain Stated Complaint: LEG PAIN Time Seen by MD: 15:58 Primary Medical Doctor: none HPI Patient is here today with complaints of pain of his right calf a deep ache deep inside his calf that started this morning. Patient denies any recent surgery or injury or long car rides or long flight. Patient states he has had varicose veins of the right lower extremity only for many years about 10 years or so. Patient denies any chest pain or shortness of breath or abdominal pain. Patient has no other concern or complaint at this time. Tetanus witin 5 years: No Medication Reconciliation Allergies: Coded Allergies: No Known Allergies (Unverified , 03/15/24) Scheduled Azithromycin (Azithromycin), 1 TAB PO DAILY, (Reported) Guaifenesin (Mucinex), 1,200 MG PO BID albuterol inhaler (Pro-Air Inhaler), 2 PUFFS IH Q6H, (Reported) Scheduled PRN ONDANSETRON ODT 4mg tablet (Ondansetron Odt), 1 TAB PO Q6H PRN PRN for nausea/vomiting Past Medical History Past Medical History: Pneumonia, Diverticulitis, Diverticulosis, Chronic Back Pain Past Surgical History: cholecystectomy Alcohol Use: None Drug Use: none Lives with: Spouse Lives In: Home Occupation: employed Review of Systems Constitutional: Denies: chills, fever, weakness Eyes: Denies: pain, blurred vision ENT: Denies: ear pain, nose pain, throat pain, mouth pain Respiratory: Denies: cough, shortness of breath Cardiovascular: Denies: chest pain, palpitations Gastrointestinal: Denies: abdominal pain, nausea, vomiting Genitourinary: Denies: burning, dysuria Male Genitalia: Denies: penile discharge, testicular pain Neurological: Denies: headache, dizziness Musculoskeletal: Denies: pain, swelling Integumentary: Denies: rash, lesions Allergic/Immunologic: Denies: hives, itching Hematologic/Lymphatic: Denies: no symptoms reported Psychiatric: Denies: depression, anxiety Physical Exam Vital Signs: Temperature: 97.8, Source: Temporal, Heart Rate: 99, Respiratory Rate: 18, BP: 185/121, Pulse Oximetry: 97, Weight: 135.880 Physical Exam General: Awake and Alert, no acute distress. HEENT: Conjunctiva pink, Sclera clear, Mucus Membranes moist. Neck: Supple without masses and tenderness. Resp: Unlabored. Lungs clear to auscultation bilaterally. Heart: Regular Rate and rhythm, normal S1 and S2 without murmur, rub or gallop. Abdomen: Soft and non tender no organomegaly Extremities: Patient does have significant varicose veins of the right lower extremity but has no appreciable calf tenderness or Homans sign on the right lower extremity. Right lower extremity is slightly more swollen than the left side but this appears chronic in nature and I do not appreciate any significant pitting edema of the right lower extremity. Skin: Warm and Dry. Progress Results/Orders Results/Orders Orders - ALICE LING PAC Vl Venous (12/29/24 16:12) Completed Orders - ALICE LING PAC Vl Venous (12/29/24 16:12) Cbc/Diff (12/29/24 16:13) CMP (12/29/24 16:13) Vital Signs 12/29/24 12/29/24 14:41 15:23 Temp 97.8 Pulse 99 Resp 18 B/P (MAP) 185/121 Pulse Ox 97 Laboratory Tests Test 12/29/24 16:59 White Blood Count 8.1 Red Blood Count 5.87 Hemoglobin 16.0 Hematocrit 47.5 Mean Corpuscular Volume 81.0 Mean Corpuscular Hemoglobin 27.3 Mean Corpuscular Hemoglobin Concent 33.7 Red Cell Distribution Width 13.9 Platelet Count 315 Mean Platelet Volume 7.1 L Neutrophils (%) (Auto) 67.8 Lymphocytes (%) (Auto) 21.1 Monocytes (%) (Auto) 8.1 Eosinophils (%) (Auto) 2.0 Basophils (%) (Auto) 1.0 Neutrophils # (Auto) 5.5 Lymphocytes # (Auto) 1.7 Monocytes # (Auto) 0.7 Eosinophils # (Auto) 0.2 Basophils # (Auto) 0.1 CBC Comment Sodium Level 136 Potassium Level 4.5 Chloride Level 98 L Carbon Dioxide Level 29.1 Anion Gap 9 Blood Urea Nitrogen 14 Creatinine 1.05 Estimated GFR/1.73 m2 79 BUN/Creatinine Ratio 13.3 Glucose Level 349 H Calcium Level 9.8 Total Bilirubin 0.5 Aspartate Amino Transf (AST/SGOT) 22 Alanine Aminotransferase (ALT/SGPT) 61 Alkaline Phosphatase 98 Total Protein 8.0 Albumin 4.1 Globulin 3.9 Albumin/Globulin Ratio 1.1 Chemistry Comments EKG/XRAY/CT/US/VASC/MRI Ultrasound : Impression VASCULAR Patient: JADA LACY Medical Record: [id number] [facility] : 1985, Age: 39 Sex: M Location: ER Patient Status: [facility] ER Service Date/Time: 12/29/241611 Ordering Physician: ALICE LING Exam Name: VENOUS Technologist: EXAM: JACE WOOD VENOUS Clinical History: Right lower extremity pain Comparison: None Technique: Duplex Doppler evaluation of the deep venous systems of the right lower extremity from the common femoral veins to the popliteal veins including color Doppler and spectral/pulsed waveform analysis was performed. Findings: No visible intraluminal venous thrombus. No evidence of incompressibility or abnormal color or spectral Doppler flow visualized in the deep right lower extremity veins. Proximal greater saphenous vein is grossly unremarkable. Patent left common femoral vein. Impression: 1. No sonographic evidence of deep venous thrombosis throughout the right lower extremity from the popliteal vein to the common femoral vein. Dictated by:YVETTE LUNA DO Dictation date and time:12/29/242007 Electronically Signed by: YVETTE LUNA DO Date and Time: 12/29/242007 Transcribed: [facility] Transcribed: NO PRIMARY CARE PROVIDER~ cc: ALICE LING; YVETTE LUNA DO ~ Medical Decision Making Findings Patient is here today with complaints of pain of his right calf a deep ache deep inside his calf that started this morning. Patient denies any recent surgery or injury or long car rides or long flight. Patient states he has had varicose veins of the right lower extremity only for many years about 10 years or so. Patient denies any chest pain or shortness of breath or abdominal pain. Patient has no other concern or complaint at this time. Patient did have ultrasound of right lower extremity that did show no sign of DVT and no sign of clot. Patient will follow up with primary care in 3-5 days if no better as needed sooner for possible referral to physical therapy or podiatrist orthopedic for further eval and treatment of his right calf pain. Patient will continue Tylenol ibuprofen as needed for symptomatic relief. Departure Disposition: HOME / SELF CARE / HOMELESS Impression: Primary Impression: Muscle strain Condition: Stable Discharge Instructions: Muscle Strain, [id number] Additional Instructions: Patient did have ultrasound of right lower extremity that did show no sign of DVT and no sign of clot. Patient will follow up with primary care in 3-5 days if no better as needed sooner for possible referral to physical therapy or podiatrist orthopedic for further eval and treatment of his right calf pain. Patient will continue Tylenol ibuprofen as needed for symptomatic relief. Referrals: NO PRIMARY CARE PROVIDER (PCP) Signature Scribe Signature: No scribe Attestation: No scribe ALICE LING PAC Dec 29, 2024 16:15
[2024-12-29 17:08] LABS: BASOPHILS # (AUTO) 0.1 X10'3 (0-0.2); EOSINOPHILS # (AUTO) 0.2 X10'3 (0-0.9); HEMATOCRIT 47.5 % (42.0-52.0); LYMPHOCYTES # (AUTO) 1.7 X10'3 (1.1-4.8); LYMPHOCYTES % (AUTO) 21.1 % (21-51); MEAN CORPUSCULAR HEMOGLOBIN 27.3 PG (27.0-31.0); MEAN CORPUSCULAR HGB CONC 33.7 g/dL (33.0-36.5); MEAN PLATELET VOLUME 7.1 FL (7.4-10.4); MONOCYTES # (AUTO) 0.7 X10'3 (0-0.9); MONOCYTES % (AUTO) 8.1 % (2-12); NEUTROPHILS # (AUTO) 5.5 X10'3 (1.8-7.7); NEUTROPHILS % (AUTO) 67.8 % (42-75); PLATELET COUNT 315 X10'3 (140-440); RED BLOOD COUNT 5.87 X10'6 (4.70-6.10); RED CELL DISTRIBUTION WIDTH 13.9 % (11.5-14.5); WHITE BLOOD COUNT 8.1 X10'3 (4.5-11.0)
[2024-12-29 17:59] LABS: ALANINE AMINOTRANSFERASE 61 U/L (12-78); ALBUMIN 4.1 G/DL (3.4-5.0); ALBUMIN/GLOBULIN RATIO 1.1 (1.1-1.5); ALKALINE PHOSPHATASE 98 IU/L (46-116); ANION GAP 9 (8-16); ASPARTATE AMINO TRANSFERASE 22 U/L (10-37); BILIRUBIN,TOTAL 0.5 MG/DL (0.1-1.0); BLOOD UREA NITROGEN 14 MG/DL (7-18); BUN/CREATININE RATIO 13.3 (10.0-20.0); CALCIUM 9.8 MG/DL (8.5-10.1); CHLORIDE 98 MMOL/L (99-107); CREATININE 1.05 MG/DL (0.60-1.10); GLUCOSE 349 MG/DL (70-104); POTASSIUM 4.5 MMOL/L (3.5-5.1); SODIUM 136 MMOL/L (135-145); TOTAL CARBON DIOXIDE 29.1 MMOL/L (24-32); eCRCL 109 ML/MIN; eGFR 79 ML/MIN
--- NOTE | 2024-12-29 20:11 | VASCULAR REPORT ---
EXAM: VASC VL VENOUS Clinical History: Right lower extremity pain Comparison: None Technique: Duplex Doppler evaluation of the deep venous systems of the right lower extremity from the common fem oral veins to the popliteal veins including color Doppler and spectral/pulsed waveform analysis was p erformed. Findings: No visible intraluminal venous thrombus. No evidence of incompressibility or abnormal color or spectr al Doppler flow visualized in the deep right lower extremity veins. Proximal greater saphenous vein i s grossly unremarkable. Patent left common femoral vein. Impression: 1. No sonographic evidence of deep venous thrombosis throughout the right lower extremity from the po pliteal vein to the common femoral vein.
== END 2024-12-29 20:55 | disposition home or self-care (01) ==
LOC: ER 14:26
DX: S86.911A Strain of unspecified muscle(s) and tendon(s) at lower leg level, right leg, initial encounter (principal); Z90.49 Acquired absence of other specified parts of digestive tract; Z79.899 Other long term (current) drug therapy; X58.XXXA Exposure to other specified factors, initial encounter; Y93.89 Activity, other specified; Y92.89 Other specified places as the place of occurrence of the external cause; Y99.8 Other external cause status
CPT/HCPCS: 36415; 80053; 85025; 93971; 99284